=== PATIENT | female | born 1995 | race African-American/Black ===

== ENCOUNTER → 2021-02-01 | Outpatient (CLI) | payer OTHER | LOC: M WHC 08:33 | PROVIDERS: ATTEND Nurse Practitioner | DX: Z12.31 Encounter for screening mammogram for malignant neoplasm of breast (principal) | CPT/HCPCS: 77066; G0279 ==

== ENCOUNTER → 2021-02-06 | Outpatient (CLI) | payer OTHER ==
--- NOTE | 2021-02-06 13:31 | REP ---
INDICATION: Bilateral breast pain COMPARISON: Bilateral screening mammogram, 02/01/2021. TECHNIQUE: Ultrasound evaluation of both breasts including elastography, was performed. FINDINGS: Right breast: 9 o'clock, 4 cm from the nipple, 5 x 5 x 4 mm, complicated cyst with debris. Low shear wave velocity. Left breast: No cystic or solid masses. IMPRESSION: Probably benign complicated cyst, right breast. BI-RADS: Category 3: Probably benign. RECOMMENDATION: Six-month follow-up ultrasound evaluation of the right breast. <Electronically signed by Genaro Arreola > 02/06/21 0631
== END ==
LOC: M WHC 11:40
PROVIDERS: ATTEND Technician, Other
DX: Z12.31 Encounter for screening mammogram for malignant neoplasm of breast (principal)

== ENCOUNTER 2021-11-21 08:13 | Observation (INO) | payer OTHER ==
[~2021-11-21] VITALS: Ht 165.1 cm; Wt 83.9 kg
[~2021-11-21 08:13] MED LIST: HEPARIN SOD (PORCINE) 5000UNITS/ML 1ML VIAL/SYRINGE SQ ONE; ceFAZolin SOD 2 GM in IV 1 EA IV ONE
[2021-11-21] MEDS ORDERED: LR 1,000 ML IV SCH ×2 (08:25→14:00)
[2021-11-21] MEDS ORDERED: ROCURONIUM BROMIDE 50 MG/5 ML VIAL As Ordered ONE ×3 (08:31→11:05)
[2021-11-21] MEDS ORDERED: propofoL 200 MG/20 ML VIAL As Ordered ONE (08:31)
[2021-11-21] MEDS ORDERED: fentaNYL 100 MCG/2 ML INJECTION As Ordered ONE ×2 (08:31→11:04)
[2021-11-21] MEDS ORDERED: MIDAZOLAM INJ 2MG/2ML VIAL (J2250 PER 1MG) As Ordered ONE (08:31)
[2021-11-21] MEDS ORDERED: dexameTHASONE 4 MG/ML 1ML VIAL (J1100 PER 1MG) As Ordered ONE (08:31)
[2021-11-21] MEDS ORDERED: ONDANSETRON 4MG 2ML VIAL As Ordered ONE (08:31)
[2021-11-21] MEDS ORDERED: LIDOCAINE 2% INJ 100 MG/5 ML SYRINGE As Ordered ONE (08:31)
[2021-11-21 08:47] LABS: HEMATOCRIT 37.5 % (36.0-47.0); HEMOGLOBIN 12.1 g/dl (12.0-15.5); MEAN CORPUSCULAR HGB CONC 32.3 g/dl (32.0-36.5); MEAN CORPUSCULAR VOLUME 86.8 fl (80.0-96.0); PLATELET COUNT, AUTOMATED 327 10^3/uL (150-450); RED BLOOD COUNT 4.32 10^6/uL (4.00-5.40); WHITE BLOOD COUNT 4.8 10^3/uL (4.0-10.0)
[2021-11-21] MEDS ORDERED: LIDOCAINE 1% MDV 20ML VIAL As Ordered ONE (09:12)
[2021-11-21] MEDS ORDERED: BUPIVACAINE HCL 0.25% 10ML VIAL As Ordered ONE (09:12)
[2021-11-21] MEDS ORDERED: EPINEPHrine INJ 1 MG/ML 1ML AMP As Ordered ONE (09:13)
[2021-11-21] MEDS ORDERED: GENTAMICIN SULF 80MG/2ML VIAL As Ordered ONE (09:13)
[2021-11-21] MEDS ORDERED: BUPIVACAINE LIPOSOME/PF 1.3% 20ML VIAL (13.3MG/ML)(EXPAREL) As Ordered ONE (09:13)
[2021-11-21 09:14] LABS: BLOOD UREA NITROGEN 9 MG/DL (7-18); CALCIUM LEVEL 9.2 MG/DL (8.5-10.1); CARBON DIOXIDE LEVEL 32 MEQ/L (21-32); CHLORIDE LEVEL 104 MEQ/L (98-107); CREATININE FOR GFR 0.88 MG/DL (0.55-1.30); GLOMERULAR FILTRATION RATE > 60.0 (>60); GLUCOSE, FASTING 86 MG/DL (70-100); SODIUM LEVEL 139 MEQ/L (136-145)
[2021-11-21] MEDS ORDERED: SCOPOLAMINE 1MG TRANSDERMAL PATCH TOP ONE (09:35)
[2021-11-21] MEDS ORDERED: ACETAMINOPHEN 1000MG 100ML IV BTL (OFIRMEV) (J0131 PER 10MG) As Ordered ONE (10:17)
[2021-11-21] MEDS ORDERED: HYDROmorphone HCL 2MG/ML 1ML VIAL As Ordered ONE (11:46)
[2021-11-21] MEDS ORDERED: ONDANSETRON 4MG 2ML VIAL IV PRN ×2 (14:00→14:05)
[2021-11-21] MEDS ORDERED: fentaNYL 100 MCG/2 ML INJECTION IV PRN (14:00)
[2021-11-21] MEDS ORDERED: ACETAMINOPHEN TAB 650MG DOSE (2X325MG) PO PRN (14:05)
[2021-11-21] MEDS: oxyCODONE 5MG TAB PO PRN ×2 (15:11→15:39)
[2021-11-21 16:00] VITALS: BP 120/81
[2021-11-21 16:30] VITALS: BP 118/80
[2021-11-21 17:00] VITALS: BP 121/74
[2021-11-21] MEDS: traMADol 50 MG TAB PO PRN ×2 (17:40→23:36)
[2021-11-21] MEDS: LR 1,000 ML IV SCH (17:42)
[2021-11-21 18:00] VITALS: BP 121/74
[2021-11-21] MEDS ORDERED: ceFAZolin SOD 2 GM in IV 1 EA IV ONE (18:00)
[2021-11-21 20:20] VITALS: BP 115/73
[2021-11-22 02:00] VITALS: BP 112/72
[2021-11-22] MEDS: LR 1,000 ML IV SCH (03:25)
[2021-11-22 06:00] VITALS: BP 105/66
[2021-11-22] MEDS: traMADol 50 MG TAB PO PRN (08:38)
[2021-11-22] MEDS ORDERED: TRAM50TA2 PO (08:47)
[2021-11-22 10:00] VITALS: BP 103/65
== END 2021-11-22 13:35 | disposition home or self-care (01) ==
LOC: M SDC 08:13 → M MS5PR 08:14
PROVIDERS: ADMIT Plastic Surgery Surgery of the Hand; ATTEND Plastic Surgery Surgery of the Hand
DX: N62 Hypertrophy of breast (principal); N64.81 Ptosis of breast; Z91.018 Allergy to other foods
CPT/HCPCS: 19318; 36415; 80048; 81025; 85027; 88305; 96374; 96375; C9290; J0131; J0171; J0690; J1100; J1170; J1580; J1644; J2250; J2405; J3010

== ENCOUNTER 2022-04-14 19:37 | Emergency (ER) | payer OTHER ==
[~2022-04-14] VITALS: Ht 165.1 cm; Wt 84.1 kg
[~2022-04-14 19:37] MED LIST changes: -HEPARIN SOD (PORCINE) 5000UNITS/ML 1ML VIAL/SYRINGE SQ ONE; +TRAM50TA2 PO; -ceFAZolin SOD 2 GM in IV 1 EA IV ONE
[2022-04-14 19:38] VITALS: BP 107/72
== END 2022-04-14 20:42 | disposition left against medical advice (07) ==
LOC: M ED 19:37
DX: Z53.21 Procedure and treatment not carried out due to patient leaving prior to being seen by health care provider (principal)